=== PATIENT | female | born 1985 | race Caucasian/White ===

== ENCOUNTER 2022-10-02 11:08 | Outpatient (REF) | payer OTHER, SELFPAY ==
--- NOTE | ~2022-10-02 | XR_ITS ---
EXAMINATION: XR knee LT 2V, XR knee standing BI CLINICAL INFORMATION: Reason for Exam M25.562 - Pain in left knee COMPARISON: None. TECHNIQUE: 2 views of the left knee and AP standing the bilateral knees XR/XR knee standing BI FINDINGS/IMPRESSION: * No acute fracture or dislocation. * Joint spaces are maintained without significant degenerative change. * No soft tissue abnormality.
--- NOTE | ~2022-10-02 | XR_ITS ---
EXAMINATION: XR knee LT 2V, XR knee standing BI CLINICAL INFORMATION: Reason for Exam M25.562 - Pain in left knee COMPARISON: None. TECHNIQUE: 2 views of the left knee and AP standing the bilateral knees XR/XR knee LT 2V FINDINGS/IMPRESSION: * No acute fracture or dislocation. * Joint spaces are maintained without significant degenerative change. * No soft tissue abnormality.
== END 2022-10-02 11:09 | disposition home or self-care (01) ==
LOC: HO.HOSX 11:08
PROVIDERS: Visit Provider Physician Assistant
DX: S83.102A Unspecified subluxation of left knee, initial encounter (principal)
CPT/HCPCS: 73560; 73565

== ENCOUNTER 2022-10-22 19:36 | Outpatient (REF) | payer OTHER, SELFPAY ==
--- NOTE | ~2022-10-22 | MR_ITS ---
EXAMINATION: MR KNEE WITHOUT CONTRAST, LEFT CLINICAL INFORMATION: Left knee pain following a twisting injury. Internal derangement. COMPARISON: Left knee radiographs dated 10/02/2022. TECHNIQUE: MRI of the knee without contrast was performed using routine sequences on a high-field scanner. FINDINGS: MENISCI: MEDIAL MENISCUS: Intact LATERAL MENISCUS: Intact LIGAMENTS: CRUCIATE: Complete versus near-complete tear of the anterior cruciate ligament with mild adjacent soft tissue edema. Intact posterior cruciate ligament. COLLATERAL: Intact EXTENSOR MECHANISM: Intact quadriceps and patellar tendons. Normal patellofemoral alignment. ARTICULAR CARTILAGE/BONE: PATELLOFEMORAL COMPARTMENT: Normal MEDIAL COMPARTMENT: Normal LATERAL COMPARTMENT: Normal JOINT FLUID AND BURSAE: Small joint effusion. MR/MR knee LT wo con IMPRESSION: 1. Complete versus near-complete tear of the anterior cruciate ligament with mild adjacent soft tissue edema. 2. No meniscal tear. 3. Small joint effusion.
== END 2022-10-22 19:37 | disposition home or self-care (01) ==
LOC: HO.MRI 19:36
PROVIDERS: Visit Provider Physician Assistant
DX: S83.102A Unspecified subluxation of left knee, initial encounter (principal); M23.92 Unspecified internal derangement of left knee
CPT/HCPCS: 73721

== ENCOUNTER → 2022-11-12 11:22 | Outpatient (BNVA) | payer OTHER, SELFPAY | PROVIDERS: Visit Provider Orthopaedic Surgery | DX: Z13.89 Encounter for screening for other disorder (principal) ==

== ENCOUNTER → 2023-01-07 12:57 | Outpatient (BNVA) | payer OTHER, SELFPAY | PROVIDERS: Visit Provider Physician Assistant | DX: Z13.89 Encounter for screening for other disorder (principal) ==

== ENCOUNTER 2023-01-13 08:52 | Day surgery (SDC) | payer OTHER, SELFPAY ==
[2023-01-08 12:54] VITALS: BMI 25.6
--- NOTE | 2023-01-12 10:38 | HO.ANESPROP2 ---
Documented by User: Nelsy Quigley NP 01/12/23 10:38 HPI - Anesthesia Eval Consult details Narrative: 37yo F for Left ACL Allograft PMFSH Active Problems Active Problems: All Active Problems (Updated 11/12/22 @ 11:36 by Pal Connor) Left anterior cruciate ligament tear (Acute) Subluxation of left knee (Acute) Internal derangement of knee (Acute) Past Medical History Medical History Bipolar disorder Surgical History Surgical History (Updated 01/13/23 @ 09:22 by Estelle Mcclendon) No pertinent past surgical history Social History Social History Patient Tobacco Use Status: Never used Tobacco Use of substances other than those prescribed or required for medical reasons: Yes Substance Use Frequency: Occasionally Are you DNR?: No Advance Directives: No Advance Directives Information Provided: Yes Current occupational status: employed 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 Meds Allergies Allergy/AdvReac Type Severity Reaction Status Date / Time No Known Allergies Allergy Verified 01/13/23 09:22 Home Medications Medication Instructions Recorded Confirmed Last Taken Type venlafaxine 75 mg capsule,extended 75 mg PO DAILY 10/02/22 01/13/23 01/12/23 History release 24 hr Exam Exam Date and Time: January 12, 2023 1038 Height,Weight and Vital Signs: Height 5 ft 2 in Weight 63.503 kg Assessment and Plan Assessment Anesthesia Assessment: Chart Reviewed Documented by User: Fady Alvarez MD 01/13/23 14:24 HPI - Anesthesia Eval Consult details Narrative: 37yo F for Left ACL Allograft Chronic back pain with radiation to lower extremities . Smokes Marijuana , smoked last night . PMFSH Past Medical History Medical History Bipolar disorder Functional capacity: independent ambulation Family History Family history of problems with anesthesia: No Surgical History Surgical History (Updated 01/13/23 @ 09:22 by Estelle Mcclendon) No pertinent past surgical history History of Problems with Anesthesia: No Social History Social History Patient Tobacco Use Status: Never used Tobacco Use of substances other than those prescribed or required for medical reasons: Yes Substance Use Frequency: Occasionally Are you DNR?: No Advance Directives: No Advance Directives Information Provided: Yes Current occupational status: employed 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 Meds Allergies Allergy/AdvReac Type Severity Reaction Status Date / Time No Known Allergies Allergy Verified 01/13/23 09:22 Home Medications Medication Instructions Recorded Confirmed Last Taken Type venlafaxine 75 mg capsule,extended 75 mg PO DAILY 10/02/22 01/13/23 01/12/23 History release 24 hr Exam Airway Mallampati Class: III TM Dist: >3cm Neck ROM: Full Loose/Missing/Broken Teeth: Yes (fillings ) Assessment and Plan Assessment Anesthesia Assessment: Anesthesia Plan Discussed Final Anesthetic Review Family History of Problems with Anesthesia: No History of Problems with Anesthesia: No NPO: Yes ASA Class: II Final Preanesthetic Review: Meds/Allgs Chart Reviewed, Consent Obtained/Reviewed and Anes Risks/Benef Reviewed Patient Risk: Intermediate Procedure Risk: Intermediate Anesthetic Plan Anesthetic Plan: GA, Regional Block and Agree w/ Assess. and Plan Disposition: Standard PACU
[2023-01-13] VITALS (17 sets, daily range): BP systolic 106–131; BP diastolic 34–73; PULSE 61–93; RESP 16–20; TEMP 36.1–36.9; O2SAT 100; BMI 26.9
[2023-01-13 09:35] LABS: UPreg QC Valid YES; Urine Pregnancy NEGATIVE (NEGATIVE)
[2023-01-13] MEDS: Lactated Ringers 1,000 ML 100 ML IVCONT (10:09)
--- NOTE | 2023-01-13 14:04 | P.BOP_ITS ---
Brief Operative Note Date of Service: 01/13/23 Pre-op diagnosis: Left ACL rupture Post-op diagnosis: same Procedure: Left ACL reconstuction with allograft Implants: Altamirano and Nephew tibial interference screw 11x25; ACL button. ACL allograft Surgeon: Cordell Jessica MD Anesthesia: GETA and regional Was an Air Gun Operator used for this Procedure?: Yes Air Gun Operator: Margaret Moore Estimated blood loss (mL): 25 Tourniquet time (min): 65 IV fluids (mL): 1,000 Pathology: none sent Condition: stable Disposition: PACU
[2023-01-13] MEDS: HYDROmorphone HCl 0.5 MG/0.5 ML SYRINGE 0.25 MG IVPUSH ×4 (14:10→14:29)
[2023-01-13] MEDS: oxyCODONE HCl Immed Release 5 MG TABLET PO (14:33)
[2023-01-13] MEDS: Acetaminophen 325 MG TABLET 650 MG PO (14:34)
[2023-01-13] MEDS: Ketorolac Tromethamine 15 MG/ML VIAL IVPUSH (14:42)
--- NOTE | 2023-01-14 14:42 | P.OP_ITS ---
Operative Note Operative Note Date of Service: 01/13/23 Narrative: Date of Service: 01/13/23 Pre-op diagnosis: Left ACL rupture Post-op diagnosis: same Procedure: Left ACL reconstuction with allograft Implants: Altamirano and Nephew tibial interference screw 11x25; ACL button. ACL allograft Surgeon: Cordell Jessica MD Anesthesia: GETA and regional Was an Real Estate Professional used for this Procedure?: Yes Real Estate Professional: Margaret Moore Estimated blood loss (mL): 25 Tourniquet time (min): 65 IV fluids (mL): 1,000 Pathology: none sent Condition: stable Disposition: PACU Procedure in detail: Patient was brought to the operating room placed supine on the arthroscopic table and prepped and draped in standard sterile fashion. A time-out was called to identify proper site proper procedure proper surgeon and IV antibiotics per weight were administered. Under anesthesia she had a + pivot shift. I began by exsanguinating the limb and insufflating tourniquet to 300 mm Hg. Then made a standard anterolateral stab incision. The knee was insufflated with water and 30 degree arthroscope was placed. There was grade 1 fibrillations of the patella but overall suprapatellar pouch and the gutters were clean. I descended into the medial compartment where I made my far medial portal under direct visualization. The medial compartment was pristine with a normal meniscus. I then examined the notch where there was a + empty wall sign and an intact PCL. I debrided the stump and acl footprint and performed a limited notchplasty. I then, through a far AM portal and a 7mm behind the back guide, drilled a k-wire through the LFC with the knee in hyper-flexion. I measured the tunnel as a 30 and then after sizing the allograft on the back table drilled a 25 mm tunnel with a 10 mm reamer. The final 5 mm was drilled with a 4.5 reamer. I then pulled a suture through the femoral tunnel and turned my attention to the tibia. The allograft was prepared on the back table, whip stitched and placed on 15 deg of tension using a Graftmaster device. I did examine the femoral tunnel and was satisfied with the posterior wall and its location low and medial at the anatomic footprint. I placed my tibial drill guide in 55 deg and, through a anteromedial inc just lateral to the tibial tubercle placed a k-wire into the notch exiting just medial to the anterior horn insertion of the lateral meniscus. I then over-reamed with a 10 reamer. I cleaned the tunnels up with a shaver. On the back table I whip-stitched the allograft to fit through a 10mm aperture and attached the femoral button to the looped end. I placed the graft on 15lbs of tension for 10 minutes. I then passed the allograft through the tibial tunnel and femoral tunnel and flipped the button. I cycled the knee about 10-15 cycles and then placed a tibial interference screw with the knee in hyper- extension while holding the graft taught. Once I was satisfied that the interference screw was buried I examined the ACL and the medial meniscus repair. The repair was stable and the ACL was not impinging and there was a negative pivot shift. I then removed all instrumentation and closed the incisions with nylon. Patient was then placed in sterile dressings and a hinged knee brace. She was then extubated brought recovery room stable condition. There were no known complications.
== END 2023-01-13 15:45 | disposition home or self-care (01) ==
LOC: HO.SSS 08:53
PROVIDERS: Nurse Practitioner; PCP Hospitalist; Visit Provider Orthopaedic Surgery
PROC: (CPT 27428; principal; 2023-01-13 11:20)
DX: S83.512A Sprain of anterior cruciate ligament of left knee, initial encounter (principal); X58.XXXA Exposure to other specified factors, initial encounter; Y93.9 Activity, unspecified; Y92.9 Unspecified place or not applicable; Y99.9 Unspecified external cause status
CPT/HCPCS: 29888; 29867; 81025; C1713; J0690; J1100; J1170; J1885; J2250; J2405; J2795; J3010

== ENCOUNTER → 2023-01-18 11:13 | Outpatient (BNVA) | payer OTHER, SELFPAY | PROVIDERS: PCP Hospitalist; Visit Provider Physician Assistant ==

== ENCOUNTER → 2023-02-19 10:21 | Outpatient (BNVA) | payer OTHER, SELFPAY | PROVIDERS: PCP Hospitalist; Visit Provider Orthopaedic Surgery ==

== ENCOUNTER 2023-03-25 13:00 | Outpatient (RCR) | payer OTHER, SELFPAY ==
--- NOTE | 2023-01-18 13:53 | MHC.PT.EP ---
[facility] [place] Office [place] Office [place] Office [address] Krupa Taylor [address] [phone] F: [phone] F: [phone] F: [phone] F: [phone] Physical Therapy Plan of Care Date of Evaluation: Date of Surgery: 01/13/23 Diagnosis: S/P ACL REPAIR WITH ALLOGRAPH (KP) Assessment: ESTRELLA IS A PLEASANT 37 YO FEMALE WHO ARRIVES DAY 5 PO FOR PT S/P ACL REPAIR. UPON EXAM HE DEMONSTRATES THE EXPECTED IMPAIRMENTS OF DECREASED ROM, DECREASED STRENGTH, ALTERED POSTURE AND POSITIONING,ALTERED GAIT AND BALANCE, AND INCREASED PAIN AND EDEMA. FUNCTIONAL LIMITATIONS INCLUDE DECREASED ABILITY TO PERFORM HOMEMAKING AND SELF-CARE TASKS, DECREASED ABILITY TO PERFORM WALKING, RUNNING, JUMPING AND SQUATTING, INABILITY TO DRIVE AND PERFORM WORK TASKS, DECREASED PARTICIPATION IN COMMUNITY AND RECREATIONAL ACTIVITIES AND DISRUPTED SLEEP. THE Pt IS A GOOD CANDIDATE FOR SKILLED PT DUE TO AGE, POTENTIAL REMEDIATION OF IMPAIRMENTS, TYPICAL DISEASE/CONDITION PROGRESSION AND PROGNOSIS, COMORBIDITIES, AND MOTIVATION. PT WOULD BENEFIT FROM TAILORED PROGRAM OF THERAPEUTIC ACTIVITIES, FUNCTIONAL TRAINING, GAIT TRAINING, POSTURAL EDUCATION, NEUROMUSCULAR RE-EDUCATION, AND MODALITIES NEEDED. Frequency and Duration: The patient will be seen 2 X WEEK FOR 4 WEEKS Short Term Goals: INITIATE HEP AND PROMOTE SELF MANAGEMENT OF SYMPTOMS Fdc Goals: TO DEMONSTRATE FULL KNEE ROM, EQUAL MITCH TO DEMONSTRATE FULL LE STRENGTH, EQUAL MITCH TO ASCEND AND DESCEND STAIRS WITH RECIPROCAL GAIT WITHOUT PAIN GREATER THAN 2/10 TO AMBULATE AD JUDY ON LEVEL AND UNEVEN SURFACES FOR FITNESS WITHOUT PAIN GREATER THAN 2/10 TO PERFORM FULL FUNCTIONAL SQUAT WITHOUT SUBSTITUTION Treatment Plan: Modalities to reduce pain, spasms and effusion. Manual therapy to restore motion and function. Therapeutic exercise to improve strength and flexibility. Neuromuscular re-education for posture and balance. Therapeutic activities to return to functional activities of daily living. Electronically signed by: IJEOMA HAMEED PT DPT Please sign and return to therapist. Thank you for your referral.
--- NOTE | 2023-03-25 13:51 | MHC.PT.DC ---
[facility] [place] Office [place] Office [place] Office [address] Krupa Taylor [address] [facility] [phone] F: [phone] F: [phone] F: [phone] F: [phone] Physical Therapy Discharge Report Diagnosis: S/P ACL REPAIR WITH ALLOGRAPH (KP) Date of Surgery: 01/13/23 Date of Evaluation: 01/18/23 Date of Discharge: 03/25/23 Treatments to Date: 6 Cancellations to Date: 0 No Shows to Date: 0 Discharge Status: Achieved Goals Improved Function Independent with HEP Discharge Summary: Sneha has progressed well in PT and at today's visit she demonstrates full ROM, full LE strength. She demonstrates normalized gait pattern and has returned to all activities without pain. She reports intermittent stiffness in quads and residual decreased sensation in rodriges area. She is DCed at this time to home program. Electronically signed by: Roxanna East PT DPT Please sign and return to therapist. Thank you for your referral.
== END 2023-03-25 13:52 | disposition home or self-care (01) ==
LOC: HO.PT 13:00
PROVIDERS: PCP Hospitalist; Visit Provider Physician Assistant
DX: S83.102D Unspecified subluxation of left knee, subsequent encounter (principal); Z98.890 Other specified postprocedural states
CPT/HCPCS: 97110; 97140; 97161

== ENCOUNTER 2023-05-27 12:20 | Outpatient (REF) | payer OTHER, SELFPAY ==
--- NOTE | ~2023-05-27 | XR_ITS ---
EXAMINATION: XR LEFT KNEE. XR STANDING BILATERAL KNEES. CLINICAL INFORMATION: Pain in unspecified knee COMPARISON: Left knee radiographs 10/02/2022. Left knee MRI 10/22/2022. TECHNIQUE: AP standing view of bilateral knees. [place] and lateral views of the left knee. FINDINGS: LEFT KNEE: Postsurgical changes characteristic of ACL repair. Mild medial joint space narrowing and marginal osteophytes. RIGHT KNEE: Mild medial joint space narrowing with medial marginal osteophytes. XR/XR knee LT 2V IMPRESSION: Postsurgical changes characteristic of ACL repair left knee. Mild degenerative changes bilateral knees.
--- NOTE | ~2023-05-27 | XR_ITS ---
EXAMINATION: XR LEFT KNEE. XR STANDING BILATERAL KNEES. CLINICAL INFORMATION: Pain in unspecified knee COMPARISON: Left knee radiographs 10/02/2022. Left knee MRI 10/22/2022. TECHNIQUE: AP standing view of bilateral knees. [place] and lateral views of the left knee. FINDINGS: LEFT KNEE: Postsurgical changes characteristic of ACL repair. Mild medial joint space narrowing and marginal osteophytes. RIGHT KNEE: Mild medial joint space narrowing with medial marginal osteophytes. XR/XR knee standing BI IMPRESSION: Postsurgical changes characteristic of ACL repair left knee. Mild degenerative changes bilateral knees.
== END 2023-05-27 12:21 | disposition home or self-care (01) ==
LOC: HO.HOSX 12:20
PROVIDERS: Visit Provider Orthopaedic Surgery
DX: M25.562 Pain in left knee (principal); Z98.890 Other specified postprocedural states
CPT/HCPCS: 73560; 73565

== ENCOUNTER 2023-05-27 12:32 | Outpatient (AMB) | payer SELFPAY ==
--- NOTE | 2023-05-27 12:33 | MHC.OFFVIS ---
Intake Intake Visit Reasons: OV L ACL Recon. w/ Allo 01/13/23 NE Intake Note: Sneha is a 37 year old female who presents today for a follow up appointment s/p left ACL recon. w/ Allo, 01/13/23 NE. Patient reports that she was kneeling about a month ago wheen she felt a shift , after this for about a week she was experiencing numbness and tingling in the leg. She also explains that when extending the leg fully she has had sharp pain, she noticed this prior to surgery. Allergies No Known Allergies Allergy (Verified 05/27/23 12:49) HPI OV L ACL Recon. w/ Allo 01/13/23 NE HPI Details Four months status post left ACL reconstruction. 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 Most her pain is posterior. She denies giving way. 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 Stable Chapis's and negative pivot shift. No joint line pain. Full range of motion. Results Reviewed Results Reviewed: I personally reviewed relevant radiographs. Left knee status post ACL reconstruction with no hardware complications or abnormal findings Assessment & Plan Assessment & Plan (1) History of repair of anterior cruciate ligament of left knee: Comment: left knee ACL reconstruction with allograft 01/13/2023 NE Code(s): Z98.890 - Other specified postprocedural states Plan: Status post ACL reconstruction with allograft. She is extremely active and it is pretty soon after surgery. 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 I think it would be a good idea that if she were functional ACL brace. Orders: Orders XR knee standing BI 05/27/23 M25.569 - Pain in unspecified knee XR knee LT 2V 05/27/23 M25.569 - Pain in unspecified knee Medications: New naproxen (EC-Naprosyn) 500 mg PO BID PRN 60 tabs 0RF pain Coding Level of Care Code Est Pt Level 3 (72584) Diagnoses History of repair of anterior cruciate ligament of left knee Z98.890
== END 2023-05-27 13:17 | disposition home or self-care (01) ==
PROVIDERS: PCP Hospitalist; Visit Provider Orthopaedic Surgery
DX: S83.512D Sprain of anterior cruciate ligament of left knee, subsequent encounter (principal)
CPT/HCPCS: 99213

== ENCOUNTER 2023-10-08 09:55 | Outpatient (AMB) | payer OTHER, SELFPAY ==
--- NOTE | 2023-10-08 09:57 | MHC.OFFVIS ---
Intake Intake Visit Reasons: OV L ACL Recon. w/ Allo 01/13/23 NE Intake Note: Sneha is a 38 year old female who presents today for a follow up s/p left ACL recon. w/ Allo 01/13/23 NE. Patient reports she finished PT, however a couple weeks ago she felt sharp pain and discomfort behind her knee when her leg is stretched out. She states that her pain is not bad today, but she does feel pain. Allergies No Known Allergies Allergy (Verified 10/08/23 10:02) HPI OV L ACL Recon. w/ Allo 01/13/23 NE HPI Details 38-year-old female who presents in the office today 8 months status post left knee ACL reconstruction with allograft, which was performed on 01/13/[address] Jessica. She was last seen in the office on 05/27/[address] Jessica who reviewed exercises with her and recommended activities she should avoid and those she can gradually return to. While in the office today the patient reports she has completed physical therapy. She states in 07/2023 she woke up with left knee pain. She states prior to the pain that occurred in 07/2023 she reports she might have been dancing. She states she had so much pain in the left knee she was unable to bear weight on the knee. She states she was stuck in bed for 3 days. She states she is unable to ambulate with a straight knee due to a pinching sensation. She states her pain is not bed today but she does feel it. She states she has pressure when she straighten her leg. She reports the pain is only with weight bearing. She reports having numbness in the left lower extremity. She also reports edema in the knee. She states she is not working out in the gym. She states she has been doing yoga and leg lifts. She confirms having lower back pain. She states she is supposed to be seen by Rheumatology for further evaluation. 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 No ecchymosis, erythema, or joint effusion. No tenderness to palpation to the medial or lateral joint lines. Full knee extension and flexion. Negative Sadie's. No laxity with anterior drawer. NVI. Assessment & Plan Assessment & Plan (1) History of repair of anterior cruciate ligament of left knee: Comment: left knee ACL reconstruction with allograft 01/13/2023 NE Code(s): Z98.890 - Other specified postprocedural states Plan Ms. Bishop is a 38-year-old female who presents in the office today 8 months status post left knee ACL reconstruction with allograft, which was performed on 01/13/[address] Jessica. She was last seen in the office on 05/27/[address] Jessica who reviewed exercises with her and recommended activities she should avoid and those she can gradually return to. While in the office today the patient reports she has completed physical therapy. She states in 07/2023 she woke up with left knee pain. She states prior to the pain that occurred in 07/2023 she reports she might have been dancing. She states she had so much pain in the left knee she was unable to bear weight on the knee. She states she was stuck in bed for 3 days. She states she is unable to ambulate with a straight knee due to a pinching sensation. She states her pain is not bed today but she does feel it. She states she has pressure when she straighten her leg. She reports the pain is only with weight bearing. She reports having numbness in the left lower extremity. She also reports edema in the knee. She states she is not working out in the gym. She states she has been doing yoga and leg lifts. She confirms having lower back pain. She states she is supposed to be seen by Rheumatology for further evaluation. Dr. Jessica was available to see the patient with me in the office today and a collaborative treatment was made. A referral was placed for physical therapy to work dynamics and strengthening. She was recommended to work on the stationary bike and low impact activities. Dr. Jessica recommended for the patient to take Advil for 2 weeks on a regular schedule to help with pain and edema. Follow up will be in [address] Jessica, or sooner if needed. Dr. Jessica encouraged the patient to reach out to him through the portal should she have another incident of severe pain so she is able to come in sooner. Orders: Orders PT Evaluation and Treatment Today Z98.890 - Other specified postprocedural states Patient Instructions: Scribed for Margaret Moore PA-C by Joyce Adam medical insurance coding specialist, on 10/08/2023 at 9:58 am, EST. Coding Level of Care Code Est Pt Level 3 (91214) Diagnoses History of repair of anterior cruciate ligament of left knee Z98.890
== END 2023-10-08 10:50 | disposition home or self-care (01) ==
PROVIDERS: PCP Hospitalist; Visit Provider Physician Assistant
DX: S83.512D Sprain of anterior cruciate ligament of left knee, subsequent encounter (principal)
CPT/HCPCS: 99213

== ENCOUNTER → 2023-10-08 09:55 | Outpatient (BNVA) | payer OTHER, SELFPAY | PROVIDERS: PCP Hospitalist; Visit Provider Physician Assistant ==

== ENCOUNTER 2023-10-27 09:50 | Outpatient (RCR) | payer OTHER, SELFPAY ==
--- NOTE | 2023-10-28 17:57 | MHC.PT.EP ---
[facility] [place] Office [place] Office [place] Office [address] Krupa Taylor [address] [phone] F: [phone] F: [phone] F: [phone] F: [phone] Physical Therapy Plan of Care Date of Evaluation: 10/27/23 Date of Surgery: 01/13/23 Diagnosis: L knee pain, ACLR on 01/13/23 Assessment: Sneha is a pleasant 38 yo female presenting to skilled physical therapy evaluation and treatment with c/o L knee pain. Pt underwent L ACLR on 01/13/23 and participated in PT until d/c on 03/25/23. Pt reports waking up with new sudden onset of L knee pain on 09/14/23, preventing her from bearing weight through L LE. She had an ortho visit on 10/08/23, where they reported no concerns and did not take updated imaging. Pt has the most functional difficulty with deep flexion, squatting, and end-range extension activities. Upon evaluation, pt presents with mild swelling, pain, fear of re-injury, and decreased L knee/hip stability. Pt has no ROM deficits at this time and only c/o pain at end ranges. Pt presents with impaired sensation along L5 dermatome on L rodriges, however all other LE dermatomes and myotomes are WNL indicating no significant nerve involvement at this time. Current impairments in combination with poor adherence to HEP at previous d/c are contributing to discomfort and impacting Sneha's ability to return to desired PLOF. Sneha would benefit from skilled PT services to build confidence in L knee, increase hip/knee stability, and promote pain-free functional mobility. Pt is recommended to attend PT 2x/week for 4 weeks. 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 Manual therapy to restore motion and function. Therapeutic exercise to improve strength and flexibility. Neuromuscular re-education for posture and balance. Therapeutic activities to return to functional activities of daily living. Electronically signed by: Danya Benjamin, PT, DPT Please sign and return to therapist. Thank you for your referral.
--- NOTE | 2023-12-29 15:44 | MHC.PT.DC ---
[facility] [place] [facility] [place] [facility] [address] Krupa Taylor [address] [phone] F: [phone] F: [phone] F: [phone] F: [phone] Physical Therapy Discharge Report Diagnosis: L knee pain, ACLR on 01/13/23 Date of Surgery: 01/13/23 Date of Evaluation: 10/27/23 Date of Discharge: 12/29/23 Treatments to Date: 1 Cancellations to Date: No Shows to Date: Discharge Status: Patient Elected to Stop Discharge Summary: Pt was evaluated for PT on 10/27/23. She did not schedule any PT treatment sessions. She is being D/C from skilled PT as she has not attended or called to reschedule in > 30 days. Pt current level of function unknown Electronically signed by: Danya Benjamin, PT, DPT Please sign and return to therapist. Thank you for your referral.
== END 2023-12-29 15:44 | disposition home or self-care (01) ==
LOC: HO.PT 09:50
PROVIDERS: PCP Hospitalist; Visit Provider Physician Assistant
DX: Z98.890 Other specified postprocedural states (principal)
CPT/HCPCS: 97110; 97161; 97162